=== PATIENT | male | born 1935 | race African-American/Black ===

== ENCOUNTER → 2019-02-19 10:15 | Outpatient (CLI) | payer MEDICARE | END | disposition home or self-care (01) | LOC: D.RAD 10:15 | PROVIDERS: ATTEND Emergency Medicine | DX: M54.5 Low back pain (principal) ==

== ENCOUNTER → 2019-03-10 11:13 | Outpatient (CLI) | payer MEDICARE | END | disposition home or self-care (01) | LOC: D.RAD 11:13 | PROVIDERS: ATTEND Emergency Medicine | DX: M25.511 Pain in right shoulder (principal) ==

== ENCOUNTER → 2020-04-07 19:00 | Outpatient (CLI) | payer MEDICARE ==
[2020-04-08 12:27] LABS: HEMATOCRIT 39.6 % (42.0-54.0); HEMOGLOBIN 12.4 g/dL (13.5-17.5); MCH 28.2 pg (26.0-34.0); MCHC 31.3 g/dL (31.0-37.0); PLATELET COUNT 109 10x3/uL (130-400); RDW 14.5 % (11.5-14.5)
[2020-04-08 12:47] LABS: PLATELET ESTIMATE DECREASED
[2020-04-08 12:48] LABS: EOSINOPHILS 1 % (0-7); LYMPHOCYTES 41 % (15-50); MONOCYTES 2 % (2-11); NEUTROPHILS 51 % (40-80)
[2020-04-08 12:49] LABS: BURR CELLS 1+
== END | disposition home or self-care (01) ==
LOC: D.LABREF 19:00
PROVIDERS: ATTEND Legal Medicine
DX: I10 Essential (primary) hypertension (principal)